=== PATIENT | male | born 1980 | race Caucasian/White ===

== ENCOUNTER 2016-05-25 13:58 | Inpatient (IN) | payer OTHER ==
[2016-05-25 17:44] VITALS: BMI 21.2
--- NOTE | 2016-05-25 18:08 | HP ---
COWS - Scale Resting Pulse: 0= IN 80 or Below Sweatin= Chills/Flushing Restless Observation: 1= Difficult to Sit Still Pupil Size: 0= Normal to Room Light Bone or Joint Aches: 2= Severe Diffuse Aches Runny Nose/ Eye Tearin= Runny Nose/Eyes GI Upset > 30mins: 3= Vomiting/Diarrhea Tremor Observation: 2= Slight Tremor Visible Yawning Observation: 1= 1-2x During Session Anxiety or Irritability: 2=Irritable/Anxious Goose Flesh Skin: 0=Smooth Skin COWS Score: 14 Admission [facility] Chief Complaint: WITHDRAWAL SX Allergies/Adverse Reactions: Allergies Allergy/AdvReac Type Severity Reaction Status Date / Time fish derived Allergy Verified 05/25/16 18:06 History of Present Illness: 35 YEARS OLD MALE WITH LONG HISTORY OF OPIATE NICOTINE DEPENDENCE, DENIES MEDICAL DENIES MENTAL ILLNESS IS ADMITTED TO DETOX Exam Limitations: No Limitations - Ebola screening Have you traveled outside of the country in the last 21 days: No Have you had contact with anyone from an Ebola affected area: No Have you been sick,other than usual withdrawal symptoms: No Do you have a fever: No - Review of Systems Constitutional: Chills, Loss of Appetite, Changes in sleep, Unintentional Wgt. Loss, Unexplained wgt Loss EENT: reports: No Symptoms Reported Respiratory: reports: SOB with Exertion Cardiac: reports: No Symptoms Reported GI: reports: Nausea, Poor Appetite, Poor Fluid Intake, Indigestion, Abdominal cramping : reports: No Symptoms Reported Musculoskeletal: reports: Back Pain, Joint Pain, Muscle Pain, Neck Pain Integumentary: reports: Change in Color (IV OPIATE BOTH INNER ELBOWS) Neuro: reports: Tremors Endocrine: reports: No Symptoms Reported Hematology: reports: No Symptoms Reported Psychiatric: reports: Judgement Intact, Mood/Affect Appropiate, Orientated x3 Other Systems: Reviewed and Negative Patient History - Patient Medical History Hx Anemia: No Hx Asthma: Yes Hx Chronic Obstructive Pulmonary Disease (COPD): Yes Hx Cancer: No Hx Cardiac Disorders: No Hx Congestive Heart Failure: No Hx Hypertension: No Hx Hypercholesterolemia: No Hx Pacemaker: No HX Cerebrovascular Accident: No Hx Seizures: No Hx Dementia: No Hx Diabetes: No Hx Gastrointestinal Disorders: Yes Hx Liver Disease: No Hx Genitourinary Disorders: No Hx Sexually Transmitted Disorders: No Hx Renal Disease (ESRD): No Hx Thyroid Disease: No Hx Human Immunodeficiency Virus (HIV): No Hx Hepatitis C: Yes Hx Depression: No Hx Suicide Attempt: No Hx Bipolar Disorder: No Hx Schizophrenia: No - Patient Surgical History Past Surgical History: Yes Other Surgical History: TONSILECTOMY Anesthesia Reaction: No - PPD History Previous Implant?: Yes Documented Results: Negative w/o proof Implanted On Prior R Admission?: No PPD to be Administered?: Yes - Smoking Cessation Smoking history: Current every day smoker Have you smoked in the past 12 months: Yes Aproximately how many cigarettes per day: 20 Cigars Per Day: 0 Hx Chewing Tobacco Use: No Initiated information on smoking cessation: Yes 'Breaking Loose' booklet given: 05/25/16 - Substance & Tx. History Hx Alcohol Use: No Hx Substance Use: Yes Substance Use Type: Cocaine, Opiates, Tranquilizers Hx Substance Use Treatment: Yes - Substances Abused Heroin Route: Injection Frequency: Daily Amount used: 15 BAGS Age of first use: 16 Date of Last Use: 05/25/16 Family Disease History - Family Disease History Family Disease History: Heart Disease: Grandparent Admission Physical Exam S - Vital Signs Vital Signs: Vital Signs - 24 hr 05/25/16 17:41 Temperature 96.0 F L Pulse Rate 66 Respiratory 20 Rate Blood Pressure 124/72 - Physical General Appearance: Yes: Appropriately Dressed, Mild Distress (HAD METHADONE 25 MG ON 05/16/16 AT [facility],), Thin, Tremorous, Irritable, Sweating, Anxious HEENTM: Yes: Hearing grossly Normal, Normal ENT Inspection, Normocephalic, Normal Voice Respiratory: Yes: Chest Non-Tender, Normal Breath Sounds, No Respiratory Distress, No Accessory Muscle Use, Hyperresonant, Inspiration Neck: Yes: Supple, Trachea in good position Breast: Yes: Breasts Symetrical Cardiology: Yes: Regular Rhythm, Regular Rate, S1, S2 Abdominal: Yes: Non Tender, Soft, Increased Bowel Sounds Genitourinary: Yes: Within Normal Limits Back: Yes: Normal Inspection Musculoskeletal: Yes: full range of Motion, Gait Steady, Back pain, Muscle Pain Extremities: Yes: Normal Range of Motion, Non-Tender, Tremors Neurological: Yes: Fully Oriented, Alert, Motor Strength 5/5, Normal Mood/Affect , Normal Response Integumentary: Yes: Warm, Track Lucas Lymphatic: Yes: Within Normal Limits - Diagnostic (1) Opioid dependence with withdrawal Current Visit: Yes Status: Acute (2) Nicotine dependence Current Visit: Yes Status: Acute Qualifiers: Nicotine product type: cigarettes Substance use status: in withdrawal Qualified Code(s): F17.213 - Nicotine dependence, cigarettes, with withdrawal (3) Weight loss Current Visit: Yes Status: Acute (4) GERD (gastroesophageal reflux disease) Current Visit: Yes Status: Acute Qualifiers: Esophagitis presence: without esophagitis Qualified Code(s): K21.9 - Gastro-esophageal reflux disease without esophagitis (5) Asthma Current Visit: Yes Status: Acute Qualifiers: Asthma severity: mild intermittent Asthma complication type: with status asthmaticus Qualified Code(s): J45.22 - Mild intermittent asthma with status asthmaticus (6) COPD (chronic obstructive pulmonary disease) Current Visit: Yes Status: Acute Qualifiers: COPD type: emphysema Emphysema type: other Qualified Code(s): J43.8 - Other emphysema (7) Hepatitis C antibody test positive Current Visit: Yes Status: Chronic Comment: SCHEDULED TO TREAT Cleared for Admission [facility] - Detox or Rehab [facility] Level of Care: Medically Managed Detox Regimen/Protocol: Methadone [facility] Breath Alcohol Content Breath Alcohol Content: 0 Urine Drug Screen - Results Drug Screen Negative: No Urine Drug Screen Results: BESSY-Cocaine, BZO-Benzodiazepines, MTD-Methadone
[2016-05-25] MEDS ORDERED: MAGNESIUM CITRATE 300 ML BOTTLE PO PRN (18:12)
[2016-05-25] MEDS ORDERED: guaiFENesin/D-METHORPHAN HB 10 ML UNIT-DOSE CUPS PO PRN (18:12)
[2016-05-25] MEDS ORDERED: MENTHOL/PHENOL 1 EACH UD MM PRN (18:12)
[2016-05-25] MEDS ORDERED: NICOTINE POLACRILEX 4 MG GUM BC PRN (18:12)
[2016-05-25] MEDS ORDERED: ACETAMINOPHEN 325 MG TABLET (FP) PO PRN (18:12)
[2016-05-25] MEDS ORDERED: P-EPHED 60MG/TRIPROLIDI 2.5MG TABLET PO PRN (18:12)
[2016-05-25] MEDS ORDERED: METHADONE HCL 10 MG TABLET (FOR DETOX USE ONLY) PO ONE ×2 (18:12→23:00)
[2016-05-25] MEDS ORDERED: MAG HYDROX/AL HYDROX/SIMETH 30 ML UNIT-DOSE CUP PO PRN (18:12)
[2016-05-25] MEDS ORDERED: MAGNESIUM HYDROX 2400MG/30ML ORAL SUSPENSION 30 ML CUP PO PRN (18:12)
[2016-05-25] MEDS ORDERED: LOPERAMIDE HCL 2 MG CAPSULE PO PRN (18:12)
[2016-05-25] MEDS ORDERED: ALBUTEROL SO4 6.7 GM HFA INHALER IH PRN (18:20)
[2016-05-25] MEDS ORDERED: METHADONE HCL 10 MG TABLET (FOR DETOX USE ONLY) ONE (21:05)
[2016-05-25] MEDS: diazePAM 5 MG TABLET PO PRN (21:07)
[2016-05-25] MEDS: RANITIDINE HCL 150 MG TABLET (FP) PO SCH (22:03)
[2016-05-25] MEDS: BUDESONIDE/FORMETEROL FUMARATE 80/4.5 mcg INHALER IH SCH (22:03)
[2016-05-25] MEDS: THIAMINE HCL 100 MG TABLET (FP) PO SCH (22:03)
[2016-05-25] MEDS: diphenhydrAMINE HCL 50 MG CAPSULE PO PRN (22:04)
[2016-05-26 03:09] LABS: URINE APPEARANCE CLEAR; URINE BILIRUBIN NEGATIVE (NEGATIVE); URINE BLOOD NEGATIVE (NEGATIVE); URINE COLOR YELLOW; URINE GLUCOSE (UA) NEGATIVE (NEGATIVE); URINE KETONE NEGATIVE (NEGATIVE); URINE LEUK ESTERASE NEGATIVE (NEGATIVE); URINE NITRITE NEGATIVE (NEGATIVE); URINE PROTEIN NEGATIVE (NEGATIVE); URINE UROBILINOGEN NEGATIVE E.U./dl (0.2-1.0)
[2016-05-26] MEDS: diazePAM 5 MG TABLET PO PRN ×4 (05:29→22:03)
[2016-05-26 09:43] LABS: MCH 29.5 pg (25.7-33.7); MCHC 34.8 g/dl (32.0-35.9); MEAN CELL VOLUME 84.9 fl (80-96); MEAN PLT VOLUME 8.9 fl (7.5-11.1); PLATELET COUNT 185 K/MM3 (134-434); RDW 14.5 % (11.9-15.9)
[2016-05-26] MEDS ORDERED: METHADONE HCL 10 MG TABLET (FOR DETOX USE ONLY) PO ONE (10:00)
[2016-05-26] MEDS: RANITIDINE HCL 150 MG TABLET (FP) PO SCH ×2 (10:08→22:03)
[2016-05-26] MEDS: BUDESONIDE/FORMETEROL FUMARATE 80/4.5 mcg INHALER IH SCH ×2 (10:08→22:04)
[2016-05-26] MEDS: PRENATAL VITAMINS W/ FOLIC ACID TABLET (FP) PO SCH (10:08)
[2016-05-26] MEDS: NICOTINE 21 MG/24 HOURS TOPICAL PATCH TD SCH (10:10)
[2016-05-26] MEDS ORDERED: ONDANSETRON *ODT* 4 MG TABLET SL PRN (10:24)
--- NOTE | 2016-05-26 10:32 | PN ---
BHS COWS - Scale Resting Pulse: 0= CT 80 or Below Sweatin=Flushed/Facial Moisture Restless Observation: 1= Difficult to Sit Still Pupil Size: 0= Normal to Room Light Bone or Joint Aches: 2= Severe Diffuse Aches Runny Nose/ Eye Tearin= Runny Nose/Eyes GI Upset > 30mins: 2= Nausea/Diarrhea Tremor Observation of Outstretched Hands: 2= Slight Tremor Visible Yawning Observation: 1= 1-2x During Session Anxiety or Irritability: 2=Irritable/Anxious Goose Flesh Skin: 3=Piloerection COWS Score: 17 BHS Progress Note (SOAP) Subjective: hot/cold flashes,anxiety,tremors,interrupted sleep,restless,muscle aches/spasm Objective: 05/26/16 10:32 Vital Signs - 8 hr 05/26/16 05/26/16 05/26/16 03:38 06:17 09:07 Temperature 96.5 F L 97.6 F Pulse Rate 52 L 53 L Respiratory 18 16 18 Rate Blood Pressure 128/78 116/78 Laboratory Results - last 24 hr 05/25/16 05/26/16 23:06 07:00 WBC 6.0 RBC 4.03 Hgb 11.9 Hct 34.2 L MCV 84.9 MCHC 34.8 RDW 14.5 Plt Count 185 MPV 8.9 Urine Color Yellow Urine Appearance Clear Urine pH 6.[address] [place] 1.025 Urine Protein Negative Urine Glucose (UA) Negative Urine Ketones Negative Urine Blood Negative Urine Nitrite Negative Urine Bilirubin Negative Urine Urobilinogen Negative Ur Leukocyte Esterase Negative labs noted Assessment: 05/26/16 10:32 Withdrawal sx. Plan: Continue detox
[2016-05-26 10:48] LABS: ALBUMIN 3.4 g/dl (3.4-5.0); ALK PHOS 73 U/L (45-117); ANION GAP 7 (8-16); BILIRUBIN,TOTAL 0.2 mg/dL (0.2-1.0); CALCIUM 8.6 mg/dL (8.5-10.1); CO2 27 mmol/L (21-32); COCKROFT - GAULT 142.4; CREATININE 0.6 mg/dL (0.7-1.3); GLUCOSE,RANDOM 87 mg/dL (74-106); SGOT/AST 33 U/L (15-37); SGPT/ALT 49 U/L (12-78); TOT PROT 6.7 g/dl (6.4-8.2)
[2016-05-26] MEDS: cloNIDine HCL 0.1 MG TABLET PO SCH ×2 (11:58→22:03)
--- NOTE | 2016-05-26 13:12 | EKG ---
Test Reason : Blood Pressure : / mmHG Vent. Rate : 048 BPM Atrial Rate : 048 BPM P-R Int : 160 ms QRS Dur : 092 ms QT Int : 466 ms P-R-T Axes : 066 083 064 degrees QTc Int : 416 ms SINUS BRADYCARDIA RSR' OR QR PATTERN IN V1 SUGGESTS RIGHT VENTRICULAR CONDUCTION DELAY NONSPECIFIC T WAVE ABNORMALITY BORDERLINE ECG NO PREVIOUS ECGS AVAILABLE Confirmed by SANIYA MINAYA, ASAEL ([id number]) on 05/26/2016 1:12:13 PM Referred By: Miquel Leal Confirmed By:ASAEL KOTHARI MD
[2016-05-26] MEDS: diphenhydrAMINE HCL 50 MG CAPSULE PO PRN (22:03)
[2016-05-26] MEDS: THIAMINE HCL 100 MG TABLET (FP) PO SCH (22:03)
[2016-05-27] MEDS: diazePAM 5 MG TABLET PO PRN ×3 (06:00→22:00)
[2016-05-27] MEDS ORDERED: METHADONE HCL 5 MG TABLET (FOR DETOX USE ONLY) PO ONE (10:00)
[2016-05-27] MEDS: PRENATAL VITAMINS W/ FOLIC ACID TABLET (FP) PO SCH (10:04)
[2016-05-27] MEDS: RANITIDINE HCL 150 MG TABLET (FP) PO SCH ×2 (10:04→21:59)
[2016-05-27] MEDS: cloNIDine HCL 0.1 MG TABLET PO SCH ×2 (10:04→21:59)
[2016-05-27] MEDS: NICOTINE 21 MG/24 HOURS TOPICAL PATCH TD SCH (10:06)
[2016-05-27] MEDS: BUDESONIDE/FORMETEROL FUMARATE 80/4.5 mcg INHALER IH SCH ×2 (10:06→22:03)
--- NOTE | 2016-05-27 10:13 | CONSULT ---
[facility] Psychiatric Consult - Data Date of interview: 05/27/16 Admission source: [facility] Identifying data: First admission to [facility] for this 35 y/o male from [place] ancestry seeking detox treatment for heroin,xanax and cocaine dependence.Patient is single without children,domiciled and employed on part- time basis. Substance Abuse History: - Smoking Cessation. Smoking history: Current every day smoker. Have you smoked in the past 12 months: Yes. Aproximately how many cigarettes per day: 20. Cigars Per Day: 0. Hx Chewing Tobacco Use: No. Initiated information on smoking cessation: Yes. 'Breaking Loose' booklet given : 05/25/16. - Substance & Tx. History. Hx Alcohol Use: No. Hx Substance Use: Yes. Substance Use Type: Cocaine, Opiates, Tranquilizers. Hx Substance Use Treatment: Yes. - Substances Abused. Heroin. Route: Injection. Frequency : Daily. Amount used: 15 BAGS. Age of first use: 16. Date of Last Use: . Confirmed by patient. Medical History: GERD,Hepatitis C,bronchial asthma,COPD and a past history of tonsillectomy. Psychiatric History: Patient admits to one psychiatric admission to [facility] seven years ago." It was mainly due to drug intoxication." He indicates that " no psychiatric diagnosis was made " at the time.However,in recent months,the patient was reprtedly under the care of a private psychiatrist to address anxiety/depression.Mr Salas informs that he was on paxil for four months until he dropped out of outpatient care." It did not work. " No longer on psychotropic medications.Patient denies history of suicide attempts. Physical/Sexual Abuse/Trauma History: No history reported. Additional Comment: Urine Drug Screen Results: BESSY-Cocaine, BZO-Benzodiazepines , MTD-Methadone.Noted. Mental Status Exam - Mental Status Exam Alert and Oriented to: Time, Place, Person Cognitive Function: Good Patient Appearance: Unkempt, Disheveled Mood: Anxious, Apprehensive Affect: Mood Congruent Patient Behavior: Fatigued, Appropriate, Cooperative Speech Pattern: Clear, Appropriate Voice Loudness: Normal Thought Process: Goal Oriented Thought Disorder: Not Present Hallucinations: Denies Suicidal Ideation: Denies Homicidal Ideation: Denies Insight/Judgement: Poor Sleep: Poorly, Difficulty falling asleep Appetite: Good Muscle strength/Tone: Normal Gait/Station: Normal Psychiatric Findings - Problem List ([place] 1, 2,3) (1) Opioid dependence with withdrawal Current Visit: Yes Status: Acute (2) Cocaine dependence Current Visit: Yes Status: Acute (3) Sedative hypnotic or anxiolytic dependence Current Visit: Yes Status: Acute (4) Nicotine dependence Current Visit: Yes Status: Acute Qualifiers: Nicotine product type: cigarettes Substance use status: in withdrawal Qualified Code(s): F17.213 - Nicotine dependence, cigarettes, with withdrawal (5) Substance induced mood disorder Current Visit: Yes Status: Acute (6) Asthma Current Visit: Yes Status: Chronic Qualifiers: Asthma severity: mild intermittent Asthma complication type: with status asthmaticus Qualified Code(s): J45.22 - Mild intermittent asthma with status asthmaticus (7) COPD (chronic obstructive pulmonary disease) Current Visit: Yes Status: Chronic Qualifiers: COPD type: emphysema Emphysema type: other Qualified Code(s): J43.8 - Other emphysema (8) GERD (gastroesophageal reflux disease) Current Visit: Yes Status: Chronic Qualifiers: Esophagitis presence: without esophagitis Qualified Code(s): K21.9 - Gastro-esophageal reflux disease without esophagitis (9) Hepatitis C antibody test positive Current Visit: Yes Status: Chronic Comment: SCHEDULED TO TREAT - Initial Treatment Plan Initial Treatment Plan: Psychoeducation.Detoxification in progress.Vistaril 50 mg po hs prn.Side effects/benefits discussed with patient.He agrees with careplan.Observation.
--- NOTE | 2016-05-27 12:15 | PN ---
BHS COWS - Scale Resting Pulse: 0= CT 80 or Below Sweatin=Flushed/Facial Moisture Restless Observation: 1= Difficult to Sit Still Pupil Size: 0= Normal to Room Light Bone or Joint Aches: 1= Mild Discomfort Runny Nose/ Eye Tearin= Runny Nose/Eyes GI Upset > 30mins: 2= Nausea/Diarrhea Tremor Observation of Outstretched Hands: 2= Slight Tremor Visible Yawning Observation: 1= 1-2x During Session Anxiety or Irritability: 2=Irritable/Anxious Goose Flesh Skin: 0=Smooth Skin COWS Score: 13 BHS Progress Note (SOAP) Subjective: Anxiety,sweating,interrupted sleep,restless,muscle aches,nausea. Objective: 05/27/16 12:13 Vital Signs - 8 hr 05/27/16 05/27/16 06:16 09:41 Temperature 97 F L 95.4 F L Pulse Rate 51 L 66 Respiratory 16 18 Rate Blood Pressure 114/68 107/61 Laboratory Tests 05/25/16 05/26/16 05/26/16 23:06 07:00 07:00 WBC 6.0 RBC 4.03 Hgb 11.9 Hct 34.2 L MCV 84.9 MCHC 34.8 RDW 14.5 Plt Count 185 MPV 8.9 Sodium 142 Potassium 4.0 Chloride 108 H Carbon Dioxide 27 Anion Gap 7 L BUN 12 Creatinine 0.6 L Creat Clearance w eGFR > 60 Random Glucose 87 Calcium 8.6 Total Bilirubin 0.2 AST 33 ALT 49 Alkaline Phosphatase 73 Total Protein 6.7 Albumin 3.4 Urine Color Yellow Urine Appearance Clear Urine pH 6.0 Ur Specific [place] 1.025 Urine Protein Negative Urine Glucose (UA) Negative Urine Ketones Negative Urine Blood Negative Urine Nitrite Negative Urine Bilirubin Negative Urine Urobilinogen Negative Ur Leukocyte Esterase Negative RPR Titer 05/26/16 07:00 WBC RBC Hgb Hct MCV MCHC RDW Plt Count MPV Sodium Potassium Chloride Carbon Dioxide Anion Gap BUN Creatinine Creat Clearance w eGFR Random Glucose Calcium Total Bilirubin AST ALT Alkaline Phosphatase Total Protein Albumin Urine Color Urine Appearance Urine pH Ur Specific [place] Urine Protein Urine Glucose (UA) Urine Ketones Urine Blood Urine Nitrite Urine Bilirubin Urine Urobilinogen Ur Leukocyte Esterase RPR Titer Nonreactive labs noted Assessment: 05/27/16 12:14 Withdrawal sx. Plan: Continue detox
[2016-05-27] MEDS: hydrOXYzine PAMOATE 50 MG CAPSULE (FP) PO PRN (19:15)
[2016-05-27] MEDS: THIAMINE HCL 100 MG TABLET (FP) PO SCH (21:59)
[2016-05-27] MEDS: diphenhydrAMINE HCL 50 MG CAPSULE PO PRN (22:00)
[2016-05-28] MEDS: diazePAM 5 MG TABLET PO PRN ×2 (08:19→17:20)
[2016-05-28] MEDS ORDERED: METHADONE HCL 5 MG TABLET (FOR DETOX USE ONLY) PO ONE (10:00)
[2016-05-28] MEDS: BUDESONIDE/FORMETEROL FUMARATE 80/4.5 mcg INHALER IH SCH ×2 (10:08→22:01)
[2016-05-28] MEDS: PRENATAL VITAMINS W/ FOLIC ACID TABLET (FP) PO SCH (10:08)
[2016-05-28] MEDS: NICOTINE 21 MG/24 HOURS TOPICAL PATCH TD SCH (10:08)
[2016-05-28] MEDS: cloNIDine HCL 0.1 MG TABLET PO SCH ×2 (10:08→22:03)
[2016-05-28] MEDS: RANITIDINE HCL 150 MG TABLET (FP) PO SCH ×2 (10:10→22:03)
--- NOTE | 2016-05-28 11:57 | PN ---
S Progress Note (SOAP) Subjective: Interrupted sleep, Stomach Ache, Nausea, Tremors, Body Aches, Sweating. Objective: PT. A & O X 3, OBSERVED AMBULATING ON UNIT. 05/28/16 11:54 Vital Signs Temperature 96.8 F L 05/28/16 09:40 Pulse Rate 74 05/28/16 09:40 Respiratory Rate 18 05/28/16 09:40 Blood Pressure 104/59 05/28/16 09:40 O2 Sat by Pulse Oximetry (%) Laboratory Last Values WBC 6.0 K/mm3 (4.0-10.0) 05/26/16 07:00 RBC 4.03 M/mm3 (4.00-5.60) 05/26/16 07:00 Hgb 11.9 GM/dL (11.7-16.9) 05/26/16 07:00 Hct 34.2 % (35.4-49) L 05/26/16 07:00 MCV 84.9 fl (80-96) 05/26/16 07:00 MCHC 34.8 g/dl (32.0-35.9) 05/26/16 07:00 RDW 14.5 % (11.9-15.9) 05/26/16 07:00 Plt Count 185 K/MM3 (134-434) 05/26/16 07:00 MPV 8.9 fl (7.5-11.1) 05/26/16 07:00 Sodium 142 mmol/L (136-145) 05/26/16 07:00 Potassium 4.0 mmol/L (3.5-5.1) 05/26/16 07:00 Chloride 108 mmol/L (98-107) H 05/26/16 07:00 Carbon Dioxide 27 mmol/L (21-32) 05/26/16 07:00 Anion Gap 7 (8-16) L 05/26/16 07:00 BUN 12 mg/dL (7-18) 05/26/16 07:00 Creatinine 0.6 mg/dL (0.7-1.3) L 05/26/16 07:00 Creat Clearance w eGFR > 60 (>60) 05/26/16 07:00 Random Glucose 87 mg/dL (74-106) 05/26/16 07:00 Calcium 8.6 mg/dL (8.5-10.1) 05/26/16 07:00 Total Bilirubin 0.2 mg/dL (0.2-1.0) 05/26/16 07:00 AST 33 U/L (15-37) 05/26/16 07:00 ALT 49 U/L (12-78) 05/26/16 07:00 Alkaline Phosphatase 73 U/L (45-117) 05/26/16 07:00 Total Protein 6.7 g/dl (6.4-8.2) 05/26/16 07:00 Albumin 3.4 g/dl (3.4-5.0) 05/26/16 07:00 Urine Color Yellow 05/25/16 23:06 Urine Appearance Clear 05/25/16 23:06 Urine pH 6.0 (5.0-8.0) 05/25/16 23:06 Ur Specific [place] 1.025 (1.001-1.035) 05/25/16 23:06 Urine Protein Negative (NEGATIVE) 05/25/16 23:06 Urine Glucose (UA) Negative (NEGATIVE) 05/25/16 23:06 Urine Ketones Negative (NEGATIVE) 05/25/16 23:06 Urine Blood Negative (NEGATIVE) 05/25/16 23:06 Urine Nitrite Negative (NEGATIVE) 05/25/16 23:06 Urine Bilirubin Negative (NEGATIVE) 05/25/16 23:06 Urine Urobilinogen Negative E.U./dl (0.2-1.0) 05/25/16 23:06 Ur Leukocyte Esterase Negative (NEGATIVE) 05/25/16 23:06 RPR Titer Nonreactive (NONREACTIVE) 05/26/16 07:00 LABS NOTED. Assessment: 05/28/16 11:55 WITHDRAWAL SYMPTOMS. Plan: CONTINUE DETOX. ADVISED PATIENT TO FOLLOW-UP WITH AUTHORIZATION NURSE / REHAB MEDICAL PROVIDER AFTER DISCHARGE FROM DETOX FOR GENERAL MEDICAL ASSESSMENT AND FOR ABNORMAL ADMISSION LAB VALUES.
[2016-05-28] MEDS: THIAMINE HCL 100 MG TABLET (FP) PO SCH (22:03)
[2016-05-28] MEDS: diphenhydrAMINE HCL 50 MG CAPSULE PO PRN (22:03)
[2016-05-29] MEDS: hydrOXYzine PAMOATE 50 MG CAPSULE (FP) PO PRN (05:59)
--- NOTE | 2016-05-29 08:30 | PN ---
BHS Progress Note (SOAP) Subjective: nausea, sweats, insomnia, anxiety, tremors, body aches Objective: 05/29/16 08:29 Vital Signs - 8 hr 05/29/16 05/29/16 03:30 06:24 Temperature 96.0 F L Pulse Rate 60 Respiratory 18 16 Rate Blood Pressure 94/57 Laboratory Tests 05/25/16 05/26/16 05/26/16 23:06 07:00 07:00 WBC 6.0 RBC 4.03 Hgb 11.9 Hct 34.2 L MCV 84.9 MCHC 34.8 RDW 14.5 Plt Count 185 MPV 8.9 Sodium 142 Potassium 4.0 Chloride 108 H Carbon Dioxide 27 Anion Gap 7 L BUN 12 Creatinine 0.6 L Creat Clearance w eGFR > 60 Random Glucose 87 Calcium 8.6 Total Bilirubin 0.2 AST 33 ALT 49 Alkaline Phosphatase 73 Total Protein 6.7 Albumin 3.4 Urine Color Yellow Urine Appearance Clear Urine pH 6.0 Ur Specific [place] 1.025 Urine Protein Negative Urine Glucose (UA) Negative Urine Ketones Negative Urine Blood Negative Urine Nitrite Negative Urine Bilirubin Negative Urine Urobilinogen Negative Ur Leukocyte Esterase Negative RPR Titer 05/26/16 07:00 WBC RBC Hgb Hct MCV MCHC RDW Plt Count MPV Sodium Potassium Chloride Carbon Dioxide Anion Gap BUN Creatinine Creat Clearance w eGFR Random Glucose Calcium Total Bilirubin AST ALT Alkaline Phosphatase Total Protein Albumin Urine Color Urine Appearance Urine pH Ur Specific [place] Urine Protein Urine Glucose (UA) Urine Ketones Urine Blood Urine Nitrite Urine Bilirubin Urine Urobilinogen Ur Leukocyte Esterase RPR Titer Nonreactive Assessment: 05/29/16 08:29 withdrawal sx, insomnia predominates Plan: cont detox, [id number] relief, requesting early disharge in AM
[2016-05-29] MEDS ORDERED: METHADONE HCL 10 MG TABLET (FOR DETOX USE ONLY) PO ONE (10:00)
[2016-05-29] MEDS: PRENATAL VITAMINS W/ FOLIC ACID TABLET (FP) PO SCH (10:11)
[2016-05-29] MEDS: RANITIDINE HCL 150 MG TABLET (FP) PO SCH ×2 (10:11→23:14)
[2016-05-29] MEDS: cloNIDine HCL 0.1 MG TABLET PO SCH ×2 (10:12→23:13)
[2016-05-29] MEDS: BUDESONIDE/FORMETEROL FUMARATE 80/4.5 mcg INHALER IH SCH ×2 (10:12→23:13)
[2016-05-29] MEDS: NICOTINE 21 MG/24 HOURS TOPICAL PATCH TD SCH (10:12)
[2016-05-29 16:49] VITALS: BP 121/60; PULSE 62; TEMP 96.9
--- NOTE | 2016-05-29 20:01 | DS ---
[facility] Detox Discharge Summary Admission Date: 05/25/16 Discharge Date: 05/29/16 - History Present History: Cocaine Dependence, Opioid Dependence, Sedative Dependence Additional Comments: refuses e prescription consider aftercare as per counselor arranged Pertinent Past History: asthma copd gerd - Physical Exam Results Vital Signs: Vital Signs Temperature 96.9 F L 05/29/16 16:49 Pulse Rate 62 05/29/16 16:49 Respiratory Rate 18 05/29/16 16:49 Blood Pressure 121/60 05/29/16 16:49 O2 Sat by Pulse Oximetry (%) Pertinent Admission Physical Exam Findings: withdrawal sx Laboratory Last Values WBC 6.0 K/mm3 (4.0-10.0) 05/26/16 07:00 RBC 4.03 M/mm3 (4.00-5.60) 05/26/16 07:00 Hgb 11.9 GM/dL (11.7-16.9) 05/26/16 07:00 Hct 34.2 % (35.4-49) L 05/26/16 07:00 MCV 84.9 fl (80-96) 05/26/16 07:00 MCHC 34.8 g/dl (32.0-35.9) 05/26/16 07:00 RDW 14.5 % (11.9-15.9) 05/26/16 07:00 Plt Count 185 K/MM3 (134-434) 05/26/16 07:00 MPV 8.9 fl (7.5-11.1) 05/26/16 07:00 Sodium 142 mmol/L (136-145) 05/26/16 07:00 Potassium 4.0 mmol/L (3.5-5.1) 05/26/16 07:00 Chloride 108 mmol/L (98-107) H 05/26/16 07:00 Carbon Dioxide 27 mmol/L (21-32) 05/26/16 07:00 Anion Gap 7 (8-16) L 05/26/16 07:00 BUN 12 mg/dL (7-18) 05/26/16 07:00 Creatinine 0.6 mg/dL (0.7-1.3) L 05/26/16 07:00 Creat Clearance w eGFR > 60 (>60) 05/26/16 07:00 Random Glucose 87 mg/dL (74-106) 05/26/16 07:00 Calcium 8.6 mg/dL (8.5-10.1) 05/26/16 07:00 Total Bilirubin 0.2 mg/dL (0.2-1.0) 05/26/16 07:00 AST 33 U/L (15-37) 05/26/16 07:00 ALT 49 U/L (12-78) 05/26/16 07:00 Alkaline Phosphatase 73 U/L (45-117) 05/26/16 07:00 Total Protein 6.7 g/dl (6.4-8.2) 05/26/16 07:00 Albumin 3.4 g/dl (3.4-5.0) 05/26/16 07:00 Urine Color Yellow 05/25/16 23:06 Urine Appearance Clear 05/25/16 23:06 Urine pH 6.0 (5.0-8.0) 05/25/16 23:06 Ur Specific [place] 1.025 (1.001-1.035) 05/25/16 23:06 Urine Protein Negative (NEGATIVE) 05/25/16 23:06 Urine Glucose (UA) Negative (NEGATIVE) 05/25/16 23:06 Urine Ketones Negative (NEGATIVE) 05/25/16 23:06 Urine Blood Negative (NEGATIVE) 05/25/16 23:06 Urine Nitrite Negative (NEGATIVE) 05/25/16 23:06 Urine Bilirubin Negative (NEGATIVE) 05/25/16 23:06 Urine Urobilinogen Negative E.U./dl (0.2-1.0) 05/25/16 23:06 Ur Leukocyte Esterase Negative (NEGATIVE) 05/25/16 23:06 RPR Titer Nonreactive (NONREACTIVE) 05/26/16 07:00 lab noted - Treatment Hospital Course: Detox Protocol Followed, Responded well - Medication Discharge Medications: Ambulatory Orders Albuterol Sulfate Inhaler - [Ventolin HFA Inhaler -] 2 inh PO Q6H 05/25/16 Budesonide/Formeterol Fumarate [SYMBICORT 160/4.5mcg -] 1 inh PO BID 05/25/16 - Diagnosis (1) Opioid dependence with withdrawal Current Visit: Yes Status: Acute (2) Nicotine dependence Current Visit: Yes Status: Acute Qualifiers: Nicotine product type: cigarettes Substance use status: in withdrawal Qualified Code(s): F17.213 - Nicotine dependence, cigarettes, with withdrawal (3) GERD (gastroesophageal reflux disease) Current Visit: Yes Status: Chronic Qualifiers: Esophagitis presence: without esophagitis Qualified Code(s): K21.9 - Gastro-esophageal reflux disease without esophagitis (4) Asthma Current Visit: Yes Status: Chronic Qualifiers: Asthma severity: mild intermittent Asthma complication type: with status asthmaticus Qualified Code(s): J45.22 - Mild intermittent asthma with status asthmaticus (5) COPD (chronic obstructive pulmonary disease) Current Visit: Yes Status: Chronic Qualifiers: COPD type: emphysema Emphysema type: other Qualified Code(s): J43.8 - Other emphysema - AMA Did Patient Leave Against Medical Advice: Yes
[2016-05-29] MEDS ORDERED: ZOLPIDEM TARTRATE 10 MG TABLET (PARK CARE ONLY) PO PRN (22:00)
[2016-05-29] MEDS: THIAMINE HCL 100 MG TABLET (FP) PO SCH (23:14)
[2016-05-30] MEDS ORDERED: METHADONE HCL 5 MG TABLET (FOR DETOX USE ONLY) PO ONE (06:00)
== END 2016-05-29 19:51 | disposition left against medical advice (07) | DRG 770 ==
LOC: YASAS 13:58 → Y3N 19:34
PROVIDERS: ADMIT Internal Medicine; ATTEND Internal Medicine
PROC: HZ2ZZZZ Detoxification Services for Substance Abuse Treatment (ICD-10-PCS; principal; 2016-05-29)
DX: F11.23 Opioid dependence with withdrawal (principal); F13.230 Sedative, hypnotic or anxiolytic dependence with withdrawal, uncomplicated; F14.20 Cocaine dependence, uncomplicated; F17.210 Nicotine dependence, cigarettes, uncomplicated; F19.24 Other psychoactive substance dependence with psychoactive substance-induced mood disorder; J43.8 Other emphysema; K21.9 Gastro-esophageal reflux disease without esophagitis; B18.2 Chronic viral hepatitis C; R63.4 Abnormal weight loss; Z68.1 Body mass index [BMI] 19.9 or less, adult
CPT/HCPCS: 36415; 80053; 81003; 85027; 86593; 93005; 93010

== ENCOUNTER 2016-10-28 19:41 | Inpatient (IN) | payer OTHER ==
[2016-10-28 21:59] VITALS: BMI 20.6
--- NOTE | 2016-10-28 22:09 | HP ---
COWS - Scale Resting Pulse: 0= IA 80 or Below Sweatin= Chills/Flushing Restless Observation: 1= Difficult to Sit Still Pupil Size: 1= Pupils >than Normal Bone or Joint Aches: 2= Severe Diffuse Aches Runny Nose/ Eye Tearin= Runny Nose/Eyes GI Upset > 30mins: 2= Nausea/Diarrhea Tremor Observation: 2= Slight Tremor Visible Yawning Observation: 1= 1-2x During Session Anxiety or Irritability: 2=Irritable/Anxious Goose Flesh Skin: 0=Smooth Skin COWS Score: 14 Admission [facility] Chief Complaint: withdrawal sx Allergies/Adverse Reactions: Allergies Allergy/AdvReac Type Severity Reaction Status Date / Time fish derived Allergy Verified 05/25/16 18:06 No Known Drug Allergies Allergy Verified 05/26/16 17:38 History of Present Illness: 36 years old male with long history of opiate nicotine dependence, has asthma copd hepatitis c and depression is admitted to detox Exam Limitations: No Limitations - Ebola screening Have you traveled outside of the country in the last 21 days: No Have you had contact with anyone from an Ebola affected area: No Have you been sick,other than usual withdrawal symptoms: No Do you have a fever: No - Review of Systems Constitutional: Loss of Appetite, Changes in sleep, Unintentional Wgt. Loss, Unexplained wgt Loss EENT: reports: No Symptoms Reported, Nose Congestion Respiratory: reports: SOB with Exertion, Productive cough (greenish) Cardiac: reports: No Symptoms Reported GI: reports: Nausea, Poor Appetite, Poor Fluid Intake, Abdominal cramping : reports: No Symptoms Reported Musculoskeletal: reports: Back Pain, Joint Pain, Muscle Pain, Neck Pain Integumentary: reports: Change in Color (both arms) Neuro: reports: Tremors Endocrine: reports: No Symptoms Reported Hematology: reports: No Symptoms Reported Psychiatric: reports: Judgement Intact, Orientated x3, Anxious, Depressed Other Systems: Reviewed and Negative Patient History - Patient Medical History Hx Anemia: No Hx Asthma: Yes Hx Chronic Obstructive Pulmonary Disease (COPD): Yes Hx Cancer: No Hx Cardiac Disorders: No Hx Congestive Heart Failure: No Hx Hypertension: No Hx Hypercholesterolemia: No Hx Pacemaker: No HX Cerebrovascular Accident: No Hx Seizures: No Hx Dementia: No Hx Diabetes: No Hx Gastrointestinal Disorders: No Hx Liver Disease: No Hx Genitourinary Disorders: No Hx Sexually Transmitted Disorders: No Hx Renal Disease (ESRD): No Hx Thyroid Disease: No Hx Human Immunodeficiency Virus (HIV): No Hx Hepatitis C: Yes Hx Depression: Yes Hx Suicide Attempt: No Hx Bipolar Disorder: No Hx Schizophrenia: No - Patient Surgical History Past Surgical History: Yes Hx Neurologic Surgery: No Hx Cataract Extraction: No Hx Cardiac Surgery: No Hx Lung Surgery: No Hx Breast Surgery: No Hx Breast Biopsy: No Hx Abdominal Surgery: No Hx Appendectomy: No Hx Cholecystectomy: No Hx Genitourinary Surgery: No Hx Orthopedic Surgery: No Other Surgical History: TONSILECTOMY Anesthesia Reaction: No - PPD History Previous Implant?: Yes Documented Results: Negative w/proof Implanted On Prior R Admission?: Yes Date: 05/27/16 PPD to be Administered?: No - Smoking Cessation Smoking history: Current every day smoker Have you smoked in the past 12 months: Yes Aproximately how many cigarettes per day: 20 Cigars Per Day: 0 Hx Chewing Tobacco Use: No Initiated information on smoking cessation: Yes 'Breaking Loose' booklet given: 10/28/16 - Substance & Tx. History Hx Alcohol Use: No Hx Substance Use: Yes Substance Use Type: Heroin, Tranquilizers Hx Substance Use Treatment: Yes (05/25-05/29/16 [facility] - Substances Abused Heroin Route: Injection Frequency: Daily Amount used: 8 bags Age of first use: 19 Date of Last Use: 10/28/16 Alprazolam (Xanax) Route: Oral Frequency: Daily Amount used: 4-6 mg Age of first use: 31 Date of Last Use: 10/27/16 Benzodiazepine (Klonopin) Route: Oral Frequency: Daily Amount used: 6 mg Age of first use: 31 Date of Last Use: 10/27/16 Family Disease History - Family Disease History Family History: Unremarkable Family Disease History: Heart Disease: Grandparent Admission Physical Exam S - Vital Signs Vital Signs: Vital Signs - 24 hr 10/28/16 21:57 Temperature 96.1 F L Pulse Rate 56 L Respiratory 18 Rate Blood Pressure 107/66 - Physical General Appearance: Yes: Appropriately Dressed, Mild Distress, Thin, Tremorous, Irritable, Sweating, Anxious HEENTM: Yes: Hearing grossly Normal, Normal ENT Inspection, Normocephalic, Normal Voice Respiratory: Yes: Chest Non-Tender, No Respiratory Distress, No Accessory Muscle Use, Wheezing, Hyperresonant Neck: Yes: Supple, Trachea in good position Breast: Yes: Breasts Symetrical Cardiology: Yes: Regular Rhythm, S1, S2, Bradycardia Abdominal: Yes: Non Tender, Soft, Increased Bowel Sounds Genitourinary: Yes: Within Normal Limits Back: Yes: Normal Inspection Musculoskeletal: Yes: full range of Motion, Gait Steady, Back pain, Muscle Pain Extremities: Yes: Normal Inspection (upper extremities iv opiate), Normal Range of Motion, Non-Tender, Tremors Neurological: Yes: Fully Oriented, Alert, Motor Strength 5/5, Normal Response, Depressed Affect Integumentary: Yes: Warm, Track Lucas Lymphatic: Yes: Within Normal Limits - Diagnostic (1) Nicotine dependence Current Visit: No Status: Acute Qualifiers: Nicotine product type: cigarettes Substance use status: in withdrawal Qualified Code(s): F17.213 - Nicotine dependence, cigarettes, with withdrawal (2) Opioid dependence with withdrawal Current Visit: Yes Status: Acute (3) Asthma Current Visit: Yes Status: Chronic Qualifiers: Asthma severity: mild persistent Asthma complication type: with status asthmaticus Qualified Code(s): J45.32 - Mild persistent asthma with status asthmaticus (4) COPD (chronic obstructive pulmonary disease) Current Visit: Yes Status: Chronic Qualifiers: COPD type: emphysema Emphysema type: other Qualified Code(s): J43.8 - Other emphysema (5) Sedative, hypnotic or anxiolytic dependence with withdrawal, uncomplicated Current Visit: Yes Status: Acute (6) Depression (emotion) Current Visit: Yes Status: Suspected Qualifiers: Depression Type: dysthymia Qualified Code(s): F34.1 - Dysthymic disorder (7) Weight loss Current Visit: Yes Status: Acute Cleared for Admission [facility] - Detox or Rehab [facility] Level of Care: Medically Managed Detox Regimen/Protocol: Methadone/Valium S Breath Alcohol Content Breath Alcohol Content: 0 Urine Drug Screen - Results Drug Screen Negative: No Urine Drug Screen Results: OPI-Opiates, BZO-Benzodiazepines, MTD-Methadone
[2016-10-28] MEDS ORDERED: ACETAMINOPHEN 325 MG TABLET (FP) PO PRN (22:14)
[2016-10-28] MEDS ORDERED: P-EPHED 60MG/TRIPROLIDI 2.5MG TABLET PO PRN (22:14)
[2016-10-28] MEDS ORDERED: NICOTINE POLACRILEX 4 MG GUM BC PRN (22:14)
[2016-10-28] MEDS ORDERED: MAG HYDROX/AL HYDROX/SIMETH 30 ML UNIT-DOSE CUP PO PRN (22:14)
[2016-10-28] MEDS ORDERED: MAGNESIUM CITRATE 300 ML BOTTLE PO PRN (22:14)
[2016-10-28] MEDS ORDERED: IBUPROFEN 400 MG TABLET (FP) PO PRN (22:14)
[2016-10-28] MEDS ORDERED: MAGNESIUM HYDROX 2400MG/30ML ORAL SUSPENSION 30 ML CUP PO PRN (22:14)
[2016-10-28] MEDS ORDERED: diphenhydrAMINE HCL 50 MG CAPSULE PO PRN (22:14)
[2016-10-28] MEDS ORDERED: guaiFENesin/D-METHORPHAN HB 10 ML UNIT-DOSE CUPS PO PRN (22:14)
[2016-10-28] MEDS ORDERED: MENTHOL/PHENOL 1 EACH UD MM PRN (22:14)
[2016-10-28] MEDS ORDERED: LOPERAMIDE HCL 2 MG CAPSULE PO PRN (22:14)
[2016-10-28] MEDS ORDERED: METHADONE HCL 10 MG TABLET (FOR DETOX USE ONLY) PO ONE ×2 (22:14→23:00)
[2016-10-28] MEDS ORDERED: diazePAM 5 MG TABLET PO ONE (22:14)
[2016-10-28] MEDS ORDERED: ALBUTEROL SO4 2.5/IPRATROPIUM 0.5 INH SOL 3 ML VIAL.NEB. NEB PRN (22:16)
[2016-10-28] MEDS ORDERED: ALBUTEROL SO4 18 GM HFA INHALER IH PRN (22:16)
[2016-10-28] MEDS: diazePAM 5 MG TABLET PO SCH (23:46)
[2016-10-29 01:19] LABS: URINE APPEARANCE CLEAR; URINE BILIRUBIN NEGATIVE (NEGATIVE); URINE BLOOD NEGATIVE (NEGATIVE); URINE COLOR YELLOW; URINE GLUCOSE (UA) NEGATIVE (NEGATIVE); URINE KETONE NEGATIVE (NEGATIVE); URINE LEUK ESTERASE NEGATIVE (NEGATIVE); URINE NITRITE NEGATIVE (NEGATIVE); URINE PROTEIN NEGATIVE (NEGATIVE)
[2016-10-29] MEDS: diazePAM 5 MG TABLET PO SCH ×3 (05:17→22:45)
[2016-10-29] MEDS ORDERED: PRENATAL VITAMINS W/ FOLIC ACID TABLET (FP) PO SCH (10:00)
[2016-10-29] MEDS ORDERED: NICOTINE 21 MG/24 HOURS TOPICAL PATCH TD SCH (10:00)
[2016-10-29] MEDS ORDERED: METHADONE HCL 10 MG TABLET (FOR DETOX USE ONLY) PO SCH (10:00)
[2016-10-29] MEDS: diazePAM 5 MG TABLET PO PRN ×2 (10:09→17:16)
[2016-10-29] MEDS: BUDESONIDE/FORMETEROL FUMARATE 80/4.5 mcg INHALER IH SCH ×2 (10:28→22:46)
[2016-10-29] MEDS ORDERED: PNEUMOC 13-VAL CONJ-DIP CRM/PF 0.5 ML DISP.SYRIN IM ONE (12:00)
[2016-10-29] MEDS ORDERED: FLU VACCINE QUAD 60 MCG/0.5 ML (MDV 17-18) IM ONE (12:00)
[2016-10-29] MEDS ORDERED: PNEUMOCOCCAL 23 VACCINE 0.5 ML VIAL IM ONE (12:00)
--- NOTE | 2016-10-29 13:38 | CONSULT ---
[facility] Psychiatric Consult - Data Date of interview: 10/29/16 Admission source: [facility] Identifying data: This is 36 years old male with no psychiatric hospitalization history intoxicated with: Opioids, Cocaine, Xanax and Nicotine Substance Abuse History: - Smoking Cessation. Smoking history: Current every day smoker. Have you smoked in the past 12 months: Yes. Aproximately how many cigarettes per day: 20. Cigars Per Day: 0. Hx Chewing Tobacco Use: No. Initiated information on smoking cessation: Yes. 'Breaking Loose' booklet given : 10/28/16. - Substance & Tx. History. Hx Alcohol Use: No. Hx Substance Use: Yes. Substance Use Type: Heroin, Tranquilizers. Hx Substance Use Treatment: Yes (05/25-05/29/16 [facility]). - Substances Abused. Heroin. Route: Injection. Frequency: Daily. Amount used: 8 bags. Age of first use: 19. Date of Last Use: 10/28/16. Alprazolam (Xanax). Route: Oral. Frequency: Daily. Amount used: 4-6 mg. Age of first use: 31. Date of Last Use: . Benzodiazepine (Klonopin). Route: Oral. Frequency: Daily. Amount used : 6 mg. Age of first use: 31. Date of Last Use: 10/27/16 Medical History: Weight loss history, COPD, GERD, Asthma Psychiatric History: Patient reports history of depression, preoccopied with insomnia, reports taking prior to admission Ambien 10mg po qhs Physical/Sexual Abuse/Trauma History: Denies Additional Comment: Ambien 10mg po qhs Mental Status Exam - Mental Status Exam Cognitive Function: Fair Patient Appearance: Unkempt Mood: Anxious Affect: Mood Congruent Patient Behavior: Sedated Speech Pattern: Delayed Voice Loudness: Normal Thought Process: Circumstantial Thought Disorder: Being Controlled Hallucinations: Denies Suicidal Ideation: Denies Homicidal Ideation: Denies Insight/Judgement: Fair Sleep: Difficulty falling asleep Appetite: Weight loss Muscle strength/Tone: Mild Hypotonicity Gait/Station: Shuffling Additional Comments: Ambien 10mg po qhs Psychiatric Findings - Problem List ([place] 1, 2,3) (1) Opioid dependence with withdrawal Current Visit: Yes Status: Acute (2) Sedative, hypnotic or anxiolytic dependence with withdrawal, uncomplicated Current Visit: Yes Status: Acute (3) Depression (emotion) Current Visit: Yes Status: Suspected Qualifiers: Depression Type: dysthymia Qualified Code(s): F34.1 - Dysthymic disorder (4) Sedative hypnotic or anxiolytic dependence Current Visit: No Status: Acute (5) Substance induced mood disorder Current Visit: No Status: Acute - Initial Treatment Plan Initial Treatment Plan: Ambien 10mg po qhs
--- NOTE | 2016-10-29 15:16 | PN ---
[facility] CIWA - CIWA Score Nausea/Vomitin-Mild Nausea/No Vomiting Muscle Tremors: 4-Moderate,w/Arms Extend Anxiety: 3 Agitation: 3 Paroxysmal Sweats: 3 Orientation: 0-Oriented Tacttile Disturbances: 0-None Auditory Disturbances: 0-None Visual Disturbances: 0-None Headache: 0-None Present CIWA-Ar Total Score: 14 S COWS - Scale Resting Pulse: 0= IA 80 or Below Sweatin=Flushed/Facial Moisture Restless Observation: 1= Difficult to Sit Still Pupil Size: 0= Normal to Room Light Bone or Joint Aches: 1= Mild Discomfort Runny Nose/ Eye Tearin= Runny Nose/Eyes GI Upset > 30mins: 2= Nausea/Diarrhea Tremor Observation of Outstretched Hands: 2= Slight Tremor Visible Yawning Observation: 1= 1-2x During Session Anxiety or Irritability: 2=Irritable/Anxious Goose Flesh Skin: 0=Smooth Skin COWS Score: 13 [facility] Progress Note (SOAP) Subjective: Tremors,sweating,anxiety,interrupted sleep,restless,body aches. Pt. c/o productive cough,was diagnosed with pneumonia but only took one or two doses of Augmentin. Objective: 10/29/16 15:14 Vital Signs - 8 hr 10/29/16 10/29/16 09:39 12:57 Temperature 97.0 F L 96.4 F L Pulse Rate 57 L 64 Respiratory 18 18 Rate Blood Pressure 113/75 121/69 Laboratory Last Values Urine Color Yellow 10/28/16 23:45 Urine Appearance Clear 10/28/16 23:45 Urine pH 6.0 (5.0-8.0) 10/28/16 23:45 Ur Specific [place] 1.020 (1.005-1.025) 10/28/16 23:45 Urine Protein Negative (NEGATIVE) 10/28/16 23:45 Urine Glucose (UA) Negative (NEGATIVE) 10/28/16 23:45 Urine Ketones Negative (NEGATIVE) 10/28/16 23:45 Urine Blood Negative (NEGATIVE) 10/28/16 23:45 Urine Nitrite Negative (NEGATIVE) 10/28/16 23:45 Urine Bilirubin Negative (NEGATIVE) 10/28/16 23:45 Urine Urobilinogen 2.0 mg/dL (0.2-1.0) 10/28/16 23:45 u/a noted Assessment: 10/29/16 15:15 Withdrawal sx. hx. of pneumonia Plan: Continue detox Augmentin
--- NOTE | 2016-10-29 15:58 | EKG ---
Test Reason : Blood Pressure : / mmHG Vent. Rate : 047 BPM Atrial Rate : 047 BPM P-R Int : 172 ms QRS Dur : 092 ms QT Int : 492 ms P-R-T Axes : 062 081 065 degrees QTc Int : 435 ms SINUS BRADYCARDIA OTHERWISE NORMAL ECG WHEN COMPARED WITH ECG OF 25-MAY-2016 20:17, NO SIGNIFICANT CHANGE WAS FOUND Confirmed by DK MERINO MD ([id number]) on 10/29/2016 3:58:10 PM Referred By: Felix Blood Confirmed By:DK MERINO MD
[2016-10-29] MEDS: AMOX TR/POT CLAV 875MG/125MG TABLETS (FP) PO SCH (17:15)
[2016-10-29] MEDS ORDERED: PANTOPRAZOLE 40 MG TABLET (FP) PO SCH (17:45)
[2016-10-29] MEDS ORDERED: NAPROXEN 500 MG TABLET (FP) PO SCH (22:00)
[2016-10-29] MEDS ORDERED: cloNIDine HCL 0.1 MG TABLET PO SCH (22:00)
[2016-10-29] MEDS ORDERED: THIAMINE HCL 100 MG TABLET (FP) PO SCH (22:00)
[2016-10-29] MEDS ORDERED: ZOLPIDEM TARTRATE 10 MG TABLET (PARK CARE ONLY) PO PRN (22:00)
[2016-10-29] MEDS: GABAPENTIN 100 MG CAPSULE (FP) PO SCH (22:47)
[2016-10-29] MEDS: CYCLOBENZAPRINE HCL 5 MG TABLET PO SCH (22:47)
[2016-10-30] MEDS: CYCLOBENZAPRINE HCL 5 MG TABLET PO SCH (06:38)
[2016-10-30] MEDS: GABAPENTIN 100 MG CAPSULE (FP) PO SCH (06:38)
[2016-10-30 06:56] VITALS: BP 116/78; PULSE 53; TEMP 96.7
[2016-10-30] MEDS: AMOX TR/POT CLAV 875MG/125MG TABLETS (FP) PO SCH (08:51)
[2016-10-30] MEDS ORDERED: METHADONE HCL 5 MG TABLET (FOR DETOX USE ONLY) PO SCH (10:00)
[2016-10-30] MEDS ORDERED: diazePAM 5 MG TABLET PO SCH (10:00)
--- NOTE | 2016-10-30 10:16 | DS ---
[facility] Detox Discharge Summary Admission Date: 10/28/16 Discharge Date: 10/30/16 - History Present History: Opioid Dependence, Sedative Dependence Additional Comments: PT BECAME VERY BELLIGERENT-SCREAMING AND PUNCHING THE WALL, CURSING OUT AND THREATENING HE PACES BACK AND FORTH ON THE HALLWAYS. PT REFUSED TO BE CALMED IN ANYWAY SUGGESTIVE OF THERAPEUTIC INTERVENTION. PT STATES HE IS LEAVING AGAIST MEDICAL ADVICE BECAUSE HE WANTS MORE METHADONE AND WE ARE NOT GIVING HIM WHAT HE WANTS. THIS PROVIDER REMINDED AND EXPLAINED TO PATIENT THE DETOX PROTOCOL AGAIN AND THE DANGERS OF HIS LACK OF INSIGHT INTO TREATMENT PROTOCOL BUT PATIENT CONTINUED TO BE OUT OF CONTROL. SECURITY WAS CALLED TO ATTEND TO PATIENT'S DISRUPTIVE BEHAVIOR OF THE UNIT THAT WAS AFFECTING OTHER PATIENTS. Pertinent Past History: ASTHMA COPD GERD - Physical Exam Results Vital Signs: Vital Signs Temperature 96.7 F L 10/30/16 06:56 Pulse Rate 53 L 10/30/16 06:56 Respiratory Rate 16 10/30/16 06:56 Blood Pressure 116/78 10/30/16 06:56 O2 Sat by Pulse Oximetry (%) Pertinent Admission Physical Exam Findings: WITHDRAWAL SX Vital Signs Temperature 96.7 F L 10/30/16 06:56 Pulse Rate 53 L 10/30/16 06:56 Respiratory Rate 16 10/30/16 06:56 Blood Pressure 116/78 10/30/16 06:56 O2 Sat by Pulse Oximetry (%) Laboratory Last Values Urine Color Yellow 10/28/16 23:45 Urine Appearance Clear 10/28/16 23:45 Urine pH 6.0 (5.0-8.0) 10/28/16 23:45 Ur Specific [place] 1.020 (1.005-1.025) 10/28/16 23:45 Urine Protein Negative (NEGATIVE) 10/28/16 23:45 Urine Glucose (UA) Negative (NEGATIVE) 10/28/16 23:45 Urine Ketones Negative (NEGATIVE) 10/28/16 23:45 Urine Blood Negative (NEGATIVE) 10/28/16 23:45 Urine Nitrite Negative (NEGATIVE) 10/28/16 23:45 Urine Bilirubin Negative (NEGATIVE) 10/28/16 23:45 Urine Urobilinogen 2.0 mg/dL (0.2-1.0) 10/28/16 23:45 OTHER LABS PENDING - Medication Discharge Medications: Ambulatory Orders Albuterol Sulfate Inhaler - [Ventolin HFA Inhaler -] 2 inh PO Q6H PRN 05/25/16 Budesonide/Formeterol Fumarate [SYMBICORT 160/4.5mcg -] 2 inh PO BID 05/25/16 Zolpidem Tartrate [Ambien] 10 mg PO HS 10/28/16 - AMA Did Patient Leave Against Medical Advice: Yes (AMA)
[2016-11-01] MEDS ORDERED: METHADONE HCL 10 MG TABLET (FOR DETOX USE ONLY) PO SCH (10:00)
[2016-11-01] MEDS ORDERED: diazePAM 5 MG TABLET PO SCH (10:00)
[2016-11-02] MEDS ORDERED: METHADONE HCL 5 MG TABLET (FOR DETOX USE ONLY) PO SCH (06:00)
== END 2016-10-30 09:25 | disposition left against medical advice (07) | DRG 770 ==
LOC: YASAS 19:41 → Y3N 22:46
PROVIDERS: ADMIT Internal Medicine; ATTEND Internal Medicine
PROC: HZ2ZZZZ Detoxification Services for Substance Abuse Treatment (ICD-10-PCS; principal; 2016-10-28)
DX: F11.23 Opioid dependence with withdrawal (principal); F13.230 Sedative, hypnotic or anxiolytic dependence with withdrawal, uncomplicated; F34.1 Dysthymic disorder; F19.24 Other psychoactive substance dependence with psychoactive substance-induced mood disorder; J43.8 Other emphysema; J45.32 Mild persistent asthma with status asthmaticus; K21.9 Gastro-esophageal reflux disease without esophagitis; R63.4 Abnormal weight loss; Z68.20 Body mass index [BMI] 20.0-20.9, adult
CPT/HCPCS: 81003; 90688; 90732; 93005; 93010; G0008; G0009

== ENCOUNTER 2022-09-18 08:41 | Inpatient (IN) | payer OTHER ==
[2022-09-18 09:20] VITALS: BMI 19.6
[2022-09-18] MEDS ORDERED: MAG HYDROX/AL HYDROX/SIMETH 30 ML UNIT-DOSE CUP PO PRN (11:37)
[2022-09-18] MEDS ORDERED: POLYETHYLENE GLYCOL (HEALTHYLAX) 3350 17 GM PACKET PO PRN (11:37)
[2022-09-18] MEDS ORDERED: BISMUTH SUBSALICYLATE 262 MG/15 ML BTL PO PRN (11:37)
[2022-09-18] MEDS ORDERED: NALOXONE HCL 0.4 MG/ML VIAL IM PRN (11:37)
[2022-09-18] MEDS ORDERED: IBUPROFEN 400 MG TABLET (FP) PO PRN (11:37)
[2022-09-18] MEDS ORDERED: BENZOCAINE/MENTHOL (CHLORASEPTIC ) LOZENGE MM PRN (11:37)
[2022-09-18] MEDS ORDERED: guaiFENesin 600 MG TABLET.ER (FP) PO PRN (11:37)
[2022-09-18] MEDS ORDERED: MAGNESIUM HYDROX 2400MG/30ML ORAL SUSPENSION 30 ML CUP PO PRN (11:37)
[2022-09-18] MEDS ORDERED: LOPERAMIDE HCL 2 MG CAPSULE PO PRN (11:37)
[2022-09-18] MEDS ORDERED: DICYCLOMINE HCL 10 MG CAPSULE PO PRN (11:37)
[2022-09-18] MEDS ORDERED: ONDANSETRON *ODT* 4 MG TABLET SL PRN (11:37)
[2022-09-18] MEDS ORDERED: methaDONE HCL 10 MG TABLET (FOR DETOX USE ONLY) PO ONE (11:37)
[2022-09-18] MEDS ORDERED: NALOXONE HCL (KLOXXADO) 8 MG SPRAY NS PRN (11:37)
[2022-09-18] MEDS ORDERED: ACETAMINOPHEN 325 MG TABLET (FP) PO PRN (11:37)
[2022-09-18] MEDS ORDERED: BENZONATATE 200 MG CAPSULE PO PRN (11:37)
[2022-09-18] MEDS: NICOTINE 21 MG/24 HOURS TOPICAL PATCH TD SCH (12:35)
[2022-09-18] MEDS: PRENATAL VITAMINS W/ FOLIC ACID TABLET (FP) PO SCH (12:36)
[2022-09-18] MEDS ORDERED: NICOTINE 21 MG/24 HOURS TOPICAL PATCH ONE (12:42)
[2022-09-18] MEDS ORDERED: methaDONE HCL 10 MG TABLET (FOR DETOX USE ONLY) ONE (12:43)
[2022-09-18] MEDS ORDERED: PRENATAL VITAMINS W/ FOLIC ACID TABLET (FP) PO ONE (12:43)
[2022-09-18 15:13] LABS: HEMATOCRIT 33.8 % (35.4-49); HEMOGLOBIN 11.1 GM/dL (11.7-16.9); MCH 28.2 pg (25.7-33.7); MCHC 32.9 g/dl (32.0-35.9); MEAN CELL VOLUME 85.7 fl (80-96); MEAN PLT VOLUME 8.8 fl (7.5-11.1); PLATELET COUNT 347 10^3/uL (134-434); RBC 3.95 M/mm3 (4.00-5.60); RDW 13.7 % (11.9-15.9); WHITE BLOOD COUNT 6.8 K/mm3 (4.0-10.0)
[2022-09-18 15:30] LABS: POTASSIUM 4.4 mmol/L (3.5-5.1)
[2022-09-18 15:32] LABS: CALCIUM 8.9 mg/dL (8.5-10.1)
[2022-09-18 15:33] LABS: ALBUMIN 3.5 g/dl (3.4-5.0); BLOOD UREA NITROGEN 18.2 mg/dL (7-18)
[2022-09-18 15:36] LABS: CREATININE 0.7 mg/dL (0.55-1.3)
[2022-09-18 15:37] LABS: BILIRUBIN,TOTAL 0.2 mg/dL (0.2-1)
[2022-09-18] MEDS: cloNIDine HCL 0.1 MG TABLET PO PRN (20:09)
[2022-09-18] MEDS: diazePAM 5 MG TABLET PO PRN (20:09)
[2022-09-18] MEDS: IBUPROFEN 600 MG TABLET (FP) PO PRN (21:10)
[2022-09-18] MEDS: THIAMINE HCL 100 MG TABLET (FP) PO SCH (22:37)
[2022-09-18] MEDS: hydrOXYzine PAMOATE 25 MG CAPSULE (FP) PO PRN (22:37)
[2022-09-18] MEDS: traZODone HCL 50 MG TABLET (FP) PO SCH (22:37)
[2022-09-18] MEDS: METHOCARBAMOL 500 MG TABLET PO PRN (22:37)
[2022-09-18] MEDS: MELATONIN 5 MG TABLETS PO SCH (22:37)
[2022-09-19] MEDS: cloNIDine HCL 0.1 MG TABLET PO PRN ×2 (07:44→15:50)
[2022-09-19] MEDS: diazePAM 5 MG TABLET PO PRN ×3 (07:44→22:28)
[2022-09-19] MEDS: IBUPROFEN 600 MG TABLET (FP) PO PRN ×2 (08:39→17:34)
[2022-09-19] MEDS: METHOCARBAMOL 500 MG TABLET PO PRN ×2 (10:50→22:27)
[2022-09-19] MEDS: PRENATAL VITAMINS W/ FOLIC ACID TABLET (FP) PO SCH (10:50)
[2022-09-19] MEDS: NICOTINE 21 MG/24 HOURS TOPICAL PATCH TD SCH (10:51)
[2022-09-19 21:12] VITALS: RESP 16
[2022-09-19] MEDS: hydrOXYzine PAMOATE 25 MG CAPSULE (FP) PO PRN (22:26)
[2022-09-19] MEDS: MELATONIN 5 MG TABLETS PO SCH (22:26)
[2022-09-19] MEDS: THIAMINE HCL 100 MG TABLET (FP) PO SCH (22:26)
[2022-09-19] MEDS: traZODone HCL 50 MG TABLET (FP) PO SCH (22:27)
[2022-09-20 06:58] VITALS: BP 127/82; PULSE 62; TEMP 97.7
[2022-09-20] MEDS ORDERED: methaDONE HCL 10 MG TABLET (FOR DETOX USE ONLY) PO ONE (10:00)
[2022-09-22] MEDS ORDERED: methaDONE HCL 10 MG TABLET (FOR DETOX USE ONLY) PO ONE (10:00)
== END 2022-09-20 06:55 | disposition left against medical advice (07) | DRG 770 ==
LOC: YASAS 08:41 → Y3N 12:27
PROVIDERS: ADMIT Allergy & Immunology; ATTEND Allergy & Immunology
PROC: HZ2ZZZZ Detoxification Services for Substance Abuse Treatment (ICD-10-PCS; principal; 2022-09-18)
DX: F11.23 Opioid dependence with withdrawal (principal); F16.10 Hallucinogen abuse, uncomplicated; F17.210 Nicotine dependence, cigarettes, uncomplicated; F19.24 Other psychoactive substance dependence with psychoactive substance-induced mood disorder; G47.00 Insomnia, unspecified; J45.32 Mild persistent asthma with status asthmaticus; J43.8 Other emphysema; K21.9 Gastro-esophageal reflux disease without esophagitis
CPT/HCPCS: 36415; 80053; 85027; 86780; 87635; 93005; 93010